=== PATIENT | female | born 1970 | race Caucasian/White ===

== ENCOUNTER → 2018-03-16 | Outpatient (CLI) | payer BC ==
[~2018-03-16] MED LIST: BIRTH CONTROL; COMPAZINE10 MG PO; CYCL10 PO; GAS-X; HYDACE5 PO; HYDACE5325 PO; IBUP800 PO; LANS15EC PO; NAPR500 PO; Norco 5-325 Ta1 EACH PO; POLY17UD PO; PROM25 PO; TRAM50 PO; Zithromax250 MG PO
[2018-03-16 13:02] LABS: BASOPHILS ABSOLUTE AUTO 0.02 K/mm3 (0.00-0.23); BASOPHILS PERCENT AUTO 0 % (0-2); EOSINOPHILS ABSOLUTE AUTO 0.06 K/mm3 (0.00-0.68); EOSINOPHILS PERCENT AUTO 1 % (0-6); Hematocrit 39.1 % (33.0-51.0); Hemoglobin 12.9 g/dL (11.5-16.0); IMMATURE GRAN ABSOLUTE AUTO 0.02 K/mm3 (0.00-0.10); IMMATURE GRAN PERCENT AUTO 0 % (0-1); LYMPHOCYTES ABSOLUTE AUTO 1.13 K/mm3 (0.84-5.20); LYMPHOCYTES PERCENT AUTO 19 % (21-46); MONOCYTES ABSOLUTE AUTO 0.45 K/mm3 (0.16-1.47); MONOCYTES PERCENT AUTO 8 % (4-13); Mean Corpuscular HGB 31.1 pg (26.0-34.0); Mean Corpuscular Volume 94 fL (80-100); NEUTROPHILS ABSOLUTE AUTO 4.25 K/mm3 (1.96-9.15); NEUTROPHILS PERCENT AUTO 72 % (41-73); Platelet Count 247 K/mm3 (150-400); RDW Coefficient Variation 12.9 % (11.7-14.2); RDW Standard Deviation 44.8 fL (35.1-46.3); Red Blood Cell Count 4.15 M/mm3 (3.80-5.20); White Blood Cell Count 5.93 K/mm3 (4.00-11.30)
[2018-03-16 13:19] LABS: Alanine Aminotransfer (ALT/SGP 20 U/L (12-78); Albumin, Blood 3.6 g/dL (3.4-5.0); Alk Phos 81 U/L (50-136); Anion Gap 6 mmol/L (6-16); Aspartate Aminotrans (AST/SGOT 9 U/L (12-37); Bilirubin, Total 0.3 mg/dL (0.1-1.0); Blood Urea Nitrogen 13 mg/dL (8-24); Bun/Creatinine Ratio 15.1 (12.0-20.0); CO2, Blood 28 mmol/L (21-32); Calcium, Blood 8.8 mg/dL (8.5-10.1); Chloride, Blood 107 mmol/L (98-108); Creatinine, Blood 0.86 mg/dL (0.40-1.00); Globulin, Blood 3.5 g/dL (2.2-4.0); Glomerular Filtration Rate >60 (60-); Glucose, Blood 85 mg/dL (70-99); Potassium, Blood 4.3 mmol/L (3.5-5.5); Sodium, Blood 141 mmol/L (136-145); Total Protein, Blood 7.1 g/dL (6.4-8.2)
== END ==
LOC: LAB 10:57 → LAB SHORT 10:57
PROVIDERS: Physician Assistant
DX: R10.9 Unspecified abdominal pain (principal)
CPT/HCPCS: 80053; 85025

== ENCOUNTER 2018-03-26 12:29 | Emergency (ER) | payer BC ==
[~2018-03-26] VITALS: Ht 162.6 cm; Wt 79.4 kg
[2018-03-26 13:33] LABS: BASOPHILS ABSOLUTE AUTO 0.02 K/mm3 (0.00-0.23); BASOPHILS PERCENT AUTO 0 % (0-2); EOSINOPHILS ABSOLUTE AUTO 0.06 K/mm3 (0.00-0.68); EOSINOPHILS PERCENT AUTO 1 % (0-6); IMMATURE GRAN ABSOLUTE AUTO 0.01 K/mm3 (0.00-0.10); IMMATURE GRAN PERCENT AUTO 0 % (0-1); LYMPHOCYTES ABSOLUTE AUTO 1.41 K/mm3 (0.84-5.20); LYMPHOCYTES PERCENT AUTO 28 % (21-46); MONOCYTES ABSOLUTE AUTO 0.56 K/mm3 (0.16-1.47); MONOCYTES PERCENT AUTO 11 % (4-13); Mean Corpuscular HGB Conc 33.3 g/dL (31.5-36.5); Mean Corpuscular Volume 93 fL (80-100); Mean Platelet Volume 9.8 fL (9.1-12.4); NEUTROPHILS ABSOLUTE AUTO 3.04 K/mm3 (1.96-9.15); NEUTROPHILS PERCENT AUTO 60 % (41-73); Platelet Count 227 K/mm3 (150-400); RDW Coefficient Variation 12.9 % (11.7-14.2); RDW Standard Deviation 43.8 fL (35.1-46.3)
[2018-03-26 13:46] LABS: Alanine Aminotransfer (ALT/SGP 25 U/L (12-78); Albumin, Blood 3.5 g/dL (3.4-5.0); Albumin/Globulin Ratio 0.9 (0.8-1.8); Alk Phos 80 U/L (50-136); Anion Gap 8 mmol/L (6-16); Aspartate Aminotrans (AST/SGOT 17 U/L (12-37); Bilirubin, Total 0.3 mg/dL (0.1-1.0); Blood Urea Nitrogen 17 mg/dL (8-24); Bun/Creatinine Ratio 20.3 (12.0-20.0); CO2, Blood 24 mmol/L (21-32); Calcium, Blood 8.7 mg/dL (8.5-10.1); Chloride, Blood 108 mmol/L (98-108); Creatinine, Blood 0.84 mg/dL (0.40-1.00); Globulin, Blood 3.7 g/dL (2.2-4.0); Glomerular Filtration Rate >60 (60-); Glucose, Blood 84 mg/dL (70-99); Sodium, Blood 140 mmol/L (136-145); Total Protein, Blood 7.2 g/dL (6.4-8.2)
[2018-03-26] MEDS ORDERED: Norco 5-325 Ta1 EACH PO (15:29)
[2018-03-26] MEDS ORDERED: IBUP800 PO (15:29)
== END 2018-03-26 16:02 | disposition home or self-care (01) ==
LOC: ER 12:29
PROVIDERS: Emergency Medicine
DX: R10.31 Right lower quadrant pain (principal); H00.19 Chalazion unspecified eye, unspecified eyelid; N88.8 Other specified noninflammatory disorders of cervix uteri; N83.02 Follicular cyst of left ovary; Z88.8 Allergy status to other drugs, medicaments and biological substances; Z88.1 Allergy status to other antibiotic agents
CPT/HCPCS: 76830; 76856; 80053; 81000; 81025; 83690; 85025; 96361; 96374; 96375; 99284; J1885; J2405; J3010; J7030

== ENCOUNTER 2019-04-11 09:28 | Inpatient (IN) | payer SELFPAY ==
[~2019-04-11] VITALS: Ht 162.6 cm; Wt 95.0 kg
[~2019-04-11 09:28] MED LIST changes: +MEDR10 PO
[2019-04-11] MEDS ORDERED: Pyridium100 MG (09:46)
[2019-04-11] MEDS ORDERED: NITR100CA PO (09:46)
[2019-04-11 10:01] LABS: Source, Urine Clean Catch
[2019-04-11 10:10] LABS: Blood, Urine 2+ (Neg); Glucose Qualitative, Urine 2+ (Neg); Ketones, Urine 1+ (Neg); Leukocyte Esterase, Urine 1+ (Neg); Nitrite, Urine Pos (Neg); Protein, Urine 2+ (Neg); Specific Gravity, Urine 1.015 (1.003-1.022); Urobilinogen, Urine 3+ (Normal)
[2019-04-11 10:12] LABS: BASOPHILS ABSOLUTE AUTO 0.02 K/mm3 (0.00-0.23); BASOPHILS PERCENT AUTO 0 % (0-2); EOSINOPHILS PERCENT AUTO 0 % (0-6); Hematocrit 38.6 % (33.0-51.0); Hemoglobin 12.8 g/dL (11.5-16.0); IMMATURE GRAN ABSOLUTE AUTO 0.07 K/mm3 (0.00-0.10); IMMATURE GRAN PERCENT AUTO 1 % (0-1); LYMPHOCYTES ABSOLUTE AUTO 0.82 K/mm3 (0.84-5.20); LYMPHOCYTES PERCENT AUTO 6 % (21-46); MONOCYTES ABSOLUTE AUTO 1.51 K/mm3 (0.16-1.47); MONOCYTES PERCENT AUTO 11 % (4-13); Mean Corpuscular HGB 31.3 pg (26.0-34.0); Mean Corpuscular HGB Conc 33.2 g/dL (31.5-36.5); Mean Corpuscular Volume 94 fL (80-100); Mean Platelet Volume 9.7 fL (9.1-12.4); NEUTROPHILS ABSOLUTE AUTO 11.96 K/mm3 (1.96-9.15); NEUTROPHILS PERCENT AUTO 83 % (41-73); Platelet Count 191 K/mm3 (150-400); RDW Coefficient Variation 13.2 % (11.7-14.2); RDW Standard Deviation 45.7 fL (35.1-46.3); Red Blood Cell Count 4.09 M/mm3 (3.80-5.20); White Blood Cell Count 14.38 K/mm3 (4.00-11.30)
[2019-04-11 10:21] LABS: Bilirubin, Urine 2+ (Neg)
[2019-04-11 10:22] LABS: Appearance, Urine Clear (Clear); Bacteria Rare /hpf; Color, Urine Amber (P-Yellow); Squamous Epithelial Cells Few /hpf (Few)
[2019-04-11 10:27] LABS: Alanine Aminotransfer (ALT/SGP 30 U/L (12-78); Albumin, Blood 3.6 g/dL (3.4-5.0); Albumin/Globulin Ratio 0.9 (0.8-1.8); Alk Phos 77 U/L (50-136); Anion Gap 8 mmol/L (6-16); Aspartate Aminotrans (AST/SGOT 14 U/L (12-37); Bilirubin, Total 0.4 mg/dL (0.1-1.0); Blood Urea Nitrogen 9 mg/dL (8-24); Bun/Creatinine Ratio 10.2 (12.0-20.0); CO2, Blood 22 mmol/L (21-32); Calcium, Blood 8.5 mg/dL (8.5-10.1); Chloride, Blood 110 mmol/L (98-108); Creatinine, Blood 0.88 mg/dL (0.40-1.00); Globulin, Blood 3.8 g/dL (2.2-4.0); Glomerular Filtration Rate >60 (60-); Glucose, Blood 101 mg/dL (70-99); Potassium, Blood 3.9 mmol/L (3.5-5.5); Sodium, Blood 140 mmol/L (136-145); Total Protein, Blood 7.4 g/dL (6.4-8.2)
[2019-04-11] MEDS ORDERED: Armour Thyroid15 MG PO (13:39)
[2019-04-11] MEDS ORDERED: FLUO10 PO (13:39)
[2019-04-11] MEDS ORDERED: PROGESTERONE100 MG PO (15:20)
[2019-04-11] MEDS ORDERED: Pyridium100 MG PO (15:22)
[2019-04-11] MEDS ORDERED: Nitrofurantoin100 MG PO (15:23)
--- NOTE | 2019-04-11 17:20 | NUR ---
SHIFT SUMMARY 49 YR OLD FEMALE ADMITTED FOR PYLEONEPHRITIS (RT SIDE). FULL CODE. SHE HAD BEEN TAKING ANTIBIOTICS FOR A UTI PREVIOUS TO ADMIT. SHE IS A&O X4, INDEPENDENT IN THE ROOM. SCD'S ORDERED FOR DVT PREVENTION. REGULAR DIET. ROOM AIR. NS IS RUNNING @ 100 ML/HR. NO OTHER HEALTH HISTORY FOR THIS PT.
[2019-04-12 05:00] LABS: BASOPHILS ABSOLUTE AUTO 0.01 K/mm3 (0.00-0.23); BASOPHILS PERCENT AUTO 0 % (0-2); EOSINOPHILS ABSOLUTE AUTO 0.01 K/mm3 (0.00-0.68); EOSINOPHILS PERCENT AUTO 0 % (0-6); Hematocrit 32.3 % (33.0-51.0); Hemoglobin 10.6 g/dL (11.5-16.0); IMMATURE GRAN ABSOLUTE AUTO 0.03 K/mm3 (0.00-0.10); IMMATURE GRAN PERCENT AUTO 0 % (0-1); LYMPHOCYTES ABSOLUTE AUTO 0.98 K/mm3 (0.84-5.20); LYMPHOCYTES PERCENT AUTO 10 % (21-46); MONOCYTES ABSOLUTE AUTO 1.03 K/mm3 (0.16-1.47); MONOCYTES PERCENT AUTO 11 % (4-13); Mean Corpuscular HGB 31.2 pg (26.0-34.0); Mean Corpuscular HGB Conc 32.8 g/dL (31.5-36.5); Mean Corpuscular Volume 95 fL (80-100); Mean Platelet Volume 9.5 fL (9.1-12.4); NEUTROPHILS ABSOLUTE AUTO 7.33 K/mm3 (1.96-9.15); NEUTROPHILS PERCENT AUTO 78 % (41-73); Platelet Count 154 K/mm3 (150-400); RDW Coefficient Variation 13.2 % (11.7-14.2); RDW Standard Deviation 45.6 fL (35.1-46.3); White Blood Cell Count 9.39 K/mm3 (4.00-11.30)
[2019-04-12 05:32] LABS: Alanine Aminotransfer (ALT/SGP 76 U/L (12-78); Albumin, Blood 2.6 g/dL (3.4-5.0); Albumin/Globulin Ratio 0.8 (0.8-1.8); Alk Phos 77 U/L (50-136); Anion Gap 5 mmol/L (6-16); Aspartate Aminotrans (AST/SGOT 64 U/L (12-37); Bilirubin, Total 0.6 mg/dL (0.1-1.0); Blood Urea Nitrogen 11 mg/dL (8-24); Bun/Creatinine Ratio 12.2 (12.0-20.0); CO2, Blood 23 mmol/L (21-32); Calcium, Blood 7.7 mg/dL (8.5-10.1); Chloride, Blood 112 mmol/L (98-108); Globulin, Blood 3.3 g/dL (2.2-4.0); Glomerular Filtration Rate >60 (60-); Glucose, Blood 109 mg/dL (70-99); Magnesium, Blood 2.1 mg/dL (1.6-2.4); Potassium, Blood 4.1 mmol/L (3.5-5.5); Sodium, Blood 140 mmol/L (136-145); Total Protein, Blood 5.9 g/dL (6.4-8.2)
--- NOTE | 2019-04-12 07:16 | NUR ---
call light in reach, room air, saline locked, pain controlled with medication, sbar report given to day staff
--- NOTE | 2019-04-12 18:32 | NUR ---
SHIFT SUMMARY 49 YR OLD FEMALE ADMITTED FOR PYELONEPHRITIS. FULL CODE. TODAY FOUND TO HAVE POSITIVE BLOOD CULTURE FOR GRAM NEGATIVE BACILLUS. ROOM AIR, INDEPENDENT. A&O X4. CHANGES MADE TO HER ANTIBIOTICS TODAY. IV FLUIDS DC'D. PT STATES SHE CONTINUES TO HAVE PAIN.
--- NOTE | 2019-04-13 04:14 | NUR ---
NOC SHIFT SUMMARY PT IS PLEASANT AND COOPERATIVE WITH CARE. STATES MUCH IMPROVEMENT WITH FLANK PAIN. THE SMALL AMOUNT OF PAIN SHE HAD WAS TREATED EFFECTIVELY PER EMAR. SHE IS AAOX4 RESP EVEN AND UNLABORD. VSS. SOME NAUSEA, TREATED PER EMAR. PT APPEARS IN NO ACUTE DISTRESS. HAS SLEPT MUCH OF SHIFT. WILL CONTINUE TO MONITOR.
[2019-04-13 04:53] LABS: BASOPHILS ABSOLUTE AUTO 0.02 K/mm3 (0.00-0.23); BASOPHILS PERCENT AUTO 0 % (0-2); EOSINOPHILS ABSOLUTE AUTO 0.04 K/mm3 (0.00-0.68); EOSINOPHILS PERCENT AUTO 1 % (0-6); Hematocrit 30.9 % (33.0-51.0); IMMATURE GRAN ABSOLUTE AUTO 0.02 K/mm3 (0.00-0.10); IMMATURE GRAN PERCENT AUTO 0 % (0-1); LYMPHOCYTES ABSOLUTE AUTO 1.06 K/mm3 (0.84-5.20); LYMPHOCYTES PERCENT AUTO 16 % (21-46); MONOCYTES ABSOLUTE AUTO 0.69 K/mm3 (0.16-1.47); MONOCYTES PERCENT AUTO 11 % (4-13); Mean Corpuscular HGB 31.2 pg (26.0-34.0); Mean Corpuscular HGB Conc 32.4 g/dL (31.5-36.5); Mean Corpuscular Volume 96 fL (80-100); Mean Platelet Volume 9.8 fL (9.1-12.4); NEUTROPHILS ABSOLUTE AUTO 4.71 K/mm3 (1.96-9.15); NEUTROPHILS PERCENT AUTO 72 % (41-73); Platelet Count 147 K/mm3 (150-400); RDW Coefficient Variation 13.1 % (11.7-14.2); RDW Standard Deviation 46.6 fL (35.1-46.3); Red Blood Cell Count 3.21 M/mm3 (3.80-5.20); White Blood Cell Count 6.54 K/mm3 (4.00-11.30)
[2019-04-13 05:13] LABS: Alanine Aminotransfer (ALT/SGP 242 U/L (12-78); Albumin, Blood 2.5 g/dL (3.4-5.0); Albumin/Globulin Ratio 0.8 (0.8-1.8); Alk Phos 95 U/L (50-136); Anion Gap 5 mmol/L (6-16); Aspartate Aminotrans (AST/SGOT 181 U/L (12-37); Bilirubin, Total 0.5 mg/dL (0.1-1.0); Blood Urea Nitrogen 14 mg/dL (8-24); Bun/Creatinine Ratio 16.4 (12.0-20.0); CO2, Blood 24 mmol/L (21-32); Calcium, Blood 7.9 mg/dL (8.5-10.1); Chloride, Blood 113 mmol/L (98-108); Creatinine, Blood 0.86 mg/dL (0.40-1.00); Globulin, Blood 3.3 g/dL (2.2-4.0); Glomerular Filtration Rate >60 (60-); Glucose, Blood 95 mg/dL (70-99); Magnesium, Blood 2.1 mg/dL (1.6-2.4); Potassium, Blood 4.5 mmol/L (3.5-5.5); Sodium, Blood 142 mmol/L (136-145); Total Protein, Blood 5.8 g/dL (6.4-8.2)
[2019-04-13 10:15] LABS: Percent Saturation 32.2 % (15.0-50.0)
--- NOTE | 2019-04-13 17:57 | NUR ---
SHIFT SUMMARY 49 YR OLD FEMALE ADMITTED FOR PYELONEPHRITIS TODAY. FULL CODE. ROOM AIR, INDEPENDENT. A&O X4. ULTRASOUND PERFORMED TODAY OF GALLBLADDER AND LIVER. PT'S BLOOD CULTURE WAS POSITIVE FOR GRAM NEG BACILLUS YESTERDAY. REGULAR DIET. PT NOW STATING ABDOMINAL PAIN WELL LOWER BACK PAIN. HX: 30 DAY LONG MENSTRUATION, UTI
[2019-04-14 05:02] LABS: BASOPHILS ABSOLUTE AUTO 0.02 K/mm3 (0.00-0.23); BASOPHILS PERCENT AUTO 0 % (0-2); EOSINOPHILS ABSOLUTE AUTO 0.04 K/mm3 (0.00-0.68); EOSINOPHILS PERCENT AUTO 1 % (0-6); Hematocrit 31.5 % (33.0-51.0); Hemoglobin 10.1 g/dL (11.5-16.0); IMMATURE GRAN ABSOLUTE AUTO 0.06 K/mm3 (0.00-0.10); IMMATURE GRAN PERCENT AUTO 1 % (0-1); LYMPHOCYTES ABSOLUTE AUTO 0.88 K/mm3 (0.84-5.20); LYMPHOCYTES PERCENT AUTO 13 % (21-46); MONOCYTES ABSOLUTE AUTO 0.72 K/mm3 (0.16-1.47); MONOCYTES PERCENT AUTO 11 % (4-13); Mean Corpuscular HGB 31.1 pg (26.0-34.0); Mean Corpuscular HGB Conc 32.1 g/dL (31.5-36.5); Mean Corpuscular Volume 97 fL (80-100); NEUTROPHILS ABSOLUTE AUTO 4.96 K/mm3 (1.96-9.15); NEUTROPHILS PERCENT AUTO 74 % (41-73); Platelet Count 174 K/mm3 (150-400); RDW Coefficient Variation 13.1 % (11.7-14.2); RDW Standard Deviation 46.9 fL (35.1-46.3); Red Blood Cell Count 3.25 M/mm3 (3.80-5.20); White Blood Cell Count 6.68 K/mm3 (4.00-11.30)
[2019-04-14 05:18] LABS: Alanine Aminotransfer (ALT/SGP 231 U/L (12-78); Albumin, Blood 2.7 g/dL (3.4-5.0); Albumin/Globulin Ratio 0.8 (0.8-1.8); Alk Phos 116 U/L (50-136); Anion Gap 5 mmol/L (6-16); Aspartate Aminotrans (AST/SGOT 85 U/L (12-37); Bilirubin, Total 0.5 mg/dL (0.1-1.0); Blood Urea Nitrogen 12 mg/dL (8-24); Bun/Creatinine Ratio 12.6 (12.0-20.0); CO2, Blood 26 mmol/L (21-32); Calcium, Blood 8.2 mg/dL (8.5-10.1); Chloride, Blood 110 mmol/L (98-108); Creatinine, Blood 0.95 mg/dL (0.40-1.00); Globulin, Blood 3.4 g/dL (2.2-4.0); Glomerular Filtration Rate >60 (60-); Glucose, Blood 104 mg/dL (70-99); Potassium, Blood 4.3 mmol/L (3.5-5.5); Sodium, Blood 141 mmol/L (136-145); Total Protein, Blood 6.1 g/dL (6.4-8.2)
--- NOTE | 2019-04-14 07:21 | NUR ---
NOC SHIFT SUMMARY PT IS PLEASANT AND COOPERATIVE WITH CARE THIS NIGHT. SLEPT OFF AND ON DURING THE NIGHT. SHE DID HAVE SOME STOMACH PAIN WHICH WAS TREATED WITH NORCO, PEPTO BISMOL, AND NAUSEA TREATED WITH ZOFRAN. VSS. NO ACUTE CHANGES THIS SHIFT. REPORT TO ANNIE LINDO.
--- NOTE | 2019-04-14 17:05 | NUR ---
PT IS A/OX3, PLEASANT AND COOPERATIVE THE PT IS UP IND IN HER ROOM, TODAY THE PT REPORTED INCREASED PAIN IN HER MID UPPER ABDOMEN AND WAS MEDICATED FOR PAIN T/O THE DAY, THE PT WAS GIVEN A GI COCKTAIL X2 TODAY AND REPORTED SOME IMPROVEMENT IN PAIN BUT NOT MUCH, THE PT APPEARS TO BE BREATHING EASILY ON RA, IT WAS NOTICED THAT THE PTS HR RATE HAS BEEN IN THE 40-50S, DR. BALL WAS CALLED NO NEW ORDERS WERE GIVEN EXCEPT TO CONTINUE MONITORING, FAMILY AT THE BEDSIDE, CALL LIGHT IN REACH, WILL CONTINUE TO MONITOR AND ASSESS FOR CHANGES
--- NOTE | 2019-04-15 04:12 | NUR ---
SHIFT SUMMARY PATIENT IS ALERT AND ORIENTED. PATIENT ON ROOM AIR. COMPLAINED OF NAUSEA AT BEGINING OF SHIFT, STATES THE ZOFRAN DID NOT HELP. PT WAS CONCERNED THAT THE HOSPITALIST WAS TAKING HER CONCERNS SERIOUSLY. SHE FEELS SHE IS GETTING WORSE AND NOTHING IS BEING DONE. STATED SHE WANTED TO SEE A DIFFERENT DOCTOR. THIS RN TALKED WITH CHARGE NURSE ALEXANDRA HUSSEIN. PT STATED THE PAIN MEDICATIONS WERE NOT HELPING MUCH WITH THE PAIN JUST MAKING HER VERY TIRED. HOSPITALIST CALLED AND UPDATED ON THE PATIENTS STATUS. NEW ORDERS FOR HIDA SCAN TODAY, A SECOND NAUSEA MED AND A CHANGE IN PAIN MEDICATIONS. MEDICATED PATIENT WITH PHENERGAN ONCE. PT STATES THIS HELPED DECREASE THE NAUSEA AND HASN'T HAD PAIN. HOSPITALIST ALSO WANTED ME TO REASSURE THE PT THAT HER LABS ARE GOING IN THE RIGHT DIRECTION. PATIENT SLEPT WELL AFTER BEING MEDICATION. NO ACUTE CHANGES SINCE THEN. VITALS STABLE. OXYGEN WAS LOW AT BEGINING OF SHIFT WITH SOB- THIS WAS ALSO DISCUSSED WITH THE HOSPITALIST. RECHECKED OXYGEN AND IT CAME UP INTO THE MID 90'S ON ROOM AIR.
--- NOTE | 2019-04-15 12:16 | NUR ---
PT CONCERN AT AROUND 1900 LAST NIGHT WHILE DOING THE BEDSIDE REPORT THE PT VOICED CONCERN THAT SHE FELT HER SYMPTOMS WERE WORSENING AND THAT SHE FELT THAT SHE WAS NOT GETTING THE THE APPROPRIATE PLAN OF CARE,BOTH THE NIGHT RN AND I TRIED TO REASURE THE PT THAT EVEN THOUGH SOME OF HER LAB VALUES, PARTICULARY HER LIVER ENZYMES, REMAINED ELEVATED THAT THEY WERE TRENDING IN THE RIGT DIRECTION, SHE ASKED AT THAT TIME IF SHE COULD HAVE ANOUTHER DOCTOR FOR A SECOND OPINION, THIS AM I CALLED THE HOSPITALIST OFFICE AND HAD TOLD THEM OF THE PATIENTS REQUEST,SINCE DR. BALL WOULD BE OFF TOMORROW 04/16/19 THEY SUGGESTED THAT THE PT WAIT UNTIL [place] BEFORE CHANGING DOCTORS, THE PT AGREED AT THAT TIME TO WAIT
[2019-04-15] MEDS ORDERED: ONDA4 PO (16:09)
[2019-04-15] MEDS ORDERED: Augmentin 875-1 EACH PO (16:10)
[2019-04-15] MEDS ORDERED: PANT20 PO (16:10)
[2019-04-15] MEDS ORDERED: Norco 5-325 Ta1 EACH PO (16:11)
--- NOTE | 2019-04-15 17:25 | NUR ---
PT DISCHARGED, THE PT VERBALIZED UNDERSTANDING OF THE DC INSTRUCTIONS, THE PT PERSCRIPTIONS WERE FAXED TO [facility] REQUESTED, HOWEVER, THE PT REPORTED THAT THEY DID NOT RECIEVE THE FAX, SO THE PRESCRIPTIONS WERE CALLED TO [facility] AFTER THE PT WAS DC'D, THE PT WAS TRANSFERED VIA WHEELCHAIR ACCOMPANIED BY HER FAMILY AND THE [facility] PRICING CONSULTANT, PT IS A/OX3, APPEARED TO BE BREATHING EASILY ON RA
== END 2019-04-15 16:33 | disposition home or self-care (01) | DRG 690 ==
LOC: ER 09:28 → MEDS 09:29
PROVIDERS: Emergency Medicine; ADMIT Internal Medicine
DX: N12 Tubulo-interstitial nephritis, not specified as acute or chronic (principal); E03.9 Hypothyroidism, unspecified; N92.6 Irregular menstruation, unspecified; K76.0 Fatty (change of) liver, not elsewhere classified
CPT/HCPCS: 36415; 71046; 74176; 76705; 80053; 81001; 82728; 83540; 83550; 83605; 83690; 83735; 84443; 85025; 87040; 87077; 87086; 87186; 96365; 96375; 99284-25; A9270; A9270-GY; J0696; J1170; J1650; J1885; J2270; J2405; J2543; J2550; J3010; J7030

== ENCOUNTER 2019-09-23 08:48 | Day surgery (SDC) | payer BC, SELFPAY ==
[~2019-09-23] VITALS: Ht 162.6 cm; Wt 95.2 kg
[~2019-09-23 08:48] MED LIST changes: +Armour Thyroid15 MG PO; +Augmentin 875-1 EACH PO; +CRUTCH2 XX; +FLUO10 PO; +INDO50S PO; +Indomethacin50 MG PO; +NITR100CA PO; +Nitrofurantoin100 MG PO; +ONDA4 PO; +PANT20 PO; +PROGESTERONE100 MG PO; +Percocet 5-3251 EACH PO; +Pyridium100 MG; +Pyridium100 MG PO
--- NOTE | 2019-09-23 10:35 | NUR ---
09/23/19 1035 Lin Whitehead PT RESTING COMFORTABLY IN BED, CALL LIGHT WITHIN REACH. FAMILY AT BEDSIDE. PT UPDATED ON DELAY. PT VERBALIZES UNDERSTANDING & DENIES NEEDS AT THIS TIME.
== END 2019-09-23 13:55 | disposition home or self-care (01) ==
LOC: ORSCSDS 08:48
PROVIDERS: Orthopaedic Surgery
PROC: 0SBD4ZZ Excision of Left Knee Joint, Percutaneous Endoscopic Approach (ICD-10-PCS; principal; 2019-09-23 10:15)
DX: S83.242A Other tear of medial meniscus, current injury, left knee, initial encounter (principal); M94.262 Chondromalacia, left knee; E03.9 Hypothyroidism, unspecified; K21.9 Gastro-esophageal reflux disease without esophagitis; E66.01 Morbid (severe) obesity due to excess calories; Z68.36 Body mass index [BMI] 36.0-36.9, adult; G62.9 Polyneuropathy, unspecified; Z79.899 Other long term (current) drug therapy
CPT/HCPCS: A9270-GY; C1713; J0171; J0690; J1100; J1885; J2250; J2405; J2704; J2795; J3010; J7120

== ENCOUNTER 2020-04-24 10:02 | Emergency (ER) | payer BC, OTHER ==
[~2020-04-24] VITALS: Ht 162.6 cm; Wt 95.2 kg
[2020-04-24] MEDS ORDERED: CELEXA10 MG PO (10:14)
[2020-04-24] MEDS ORDERED: THYROID30 MG PO (10:14)
[2020-04-24 11:04] LABS: BASOPHILS ABSOLUTE AUTO 0.02 K/mm3 (0.00-0.23); BASOPHILS PERCENT AUTO 0 % (0-2); EOSINOPHILS ABSOLUTE AUTO 0.05 K/mm3 (0.00-0.68); EOSINOPHILS PERCENT AUTO 1 % (0-6); Hematocrit 40.8 % (33.0-51.0); Hemoglobin 13.3 g/dL (11.5-16.0); IMMATURE GRAN ABSOLUTE AUTO 0.02 K/mm3 (0.00-0.10); IMMATURE GRAN PERCENT AUTO 0 % (0-1); LYMPHOCYTES ABSOLUTE AUTO 1.41 K/mm3 (0.84-5.20); LYMPHOCYTES PERCENT AUTO 21 % (21-46); MONOCYTES ABSOLUTE AUTO 0.55 K/mm3 (0.16-1.47); MONOCYTES PERCENT AUTO 8 % (4-13); Mean Corpuscular HGB 31.1 pg (26.0-34.0); Mean Corpuscular HGB Conc 32.6 g/dL (31.5-36.5); Mean Corpuscular Volume 96 fL (80-100); Mean Platelet Volume 10.3 fL (9.1-12.4); NEUTROPHILS ABSOLUTE AUTO 4.55 K/mm3 (1.96-9.15); NEUTROPHILS PERCENT AUTO 69 % (41-73); Platelet Count 236 K/mm3 (150-400); RDW Coefficient Variation 13.5 % (11.7-14.2); RDW Standard Deviation 47.5 fL (35.1-46.3); Red Blood Cell Count 4.27 M/mm3 (3.80-5.20)
[2020-04-24 12:06] LABS: Alanine Aminotransfer (ALT/SGP 25 U/L (12-78); Albumin, Blood 3.8 g/dL (3.4-5.0); Albumin/Globulin Ratio 1.1 (0.8-1.8); Alk Phos 92 U/L (50-136); Anion Gap 6 mmol/L (6-16); Aspartate Aminotrans (AST/SGOT 15 U/L (12-37); Bilirubin, Total 0.3 mg/dL (0.1-1.0); Blood Urea Nitrogen 18 mg/dL (8-24); Bun/Creatinine Ratio 17.8 (12.0-20.0); CO2, Blood 25 mmol/L (21-32); Calcium, Blood 8.8 mg/dL (8.5-10.1); Chloride, Blood 108 mmol/L (98-108); Creatinine, Blood 1.01 mg/dL (0.40-1.00); Globulin, Blood 3.6 g/dL (2.2-4.0); Glomerular Filtration Rate >60 (60-); Glucose, Blood 91 mg/dL (70-99); Magnesium, Blood 2.2 mg/dL (1.6-2.4); Potassium, Blood 3.7 mmol/L (3.5-5.5); Sodium, Blood 139 mmol/L (136-145); Total Protein, Blood 7.4 g/dL (6.4-8.2); Troponin I <0.015 ng/mL (0.000-0.040)
== END 2020-04-24 13:19 | disposition home or self-care (01) ==
LOC: ER 10:02
PROVIDERS: Emergency Medicine
DX: I10 Essential (primary) hypertension (principal); Z88.1 Allergy status to other antibiotic agents; Z88.8 Allergy status to other drugs, medicaments and biological substances; Z79.899 Other long term (current) drug therapy
CPT/HCPCS: 36415; 80053; 83735; 84443; 84484; 85025; 93005; 93010; 99283-25

== ENCOUNTER → 2020-06-17 | Outpatient (CLI) | payer BC, OTHER ==
[~2020-06-17] MED LIST changes: +CELEXA10 MG PO; +THYROID30 MG PO
== END | disposition home or self-care (01) ==
LOC: PLD 08:34 → LAB SHORT 08:34
DX: R23.4 Changes in skin texture (principal); L60.8 Other nail disorders
CPT/HCPCS: 88305; 88312

== ENCOUNTER 2020-08-19 13:55 | Day surgery (SDC) | payer BC ==
[~2020-08-19] VITALS: Ht 162.6 cm; Wt 93.6 kg
[~2020-08-19 13:55] MED LIST changes: +INDO50 PO
--- NOTE | 2020-08-19 15:02 | NUR ---
08/19/20 Raghu2 Quin Blancas CALL LIGHT WITHIN REACH. FAMILY AT BEDSIDE.
== END 2020-08-19 17:25 | disposition home or self-care (01) ==
LOC: ORSCSDS 13:55
PROVIDERS: Podiatrist
PROC: 0SNP0ZZ Release Right Toe Phalangeal Joint, Open Approach (ICD-10-PCS; principal; 2020-08-19 15:15)
PROC: 0L8V0ZZ Division of Right Foot Tendon, Open Approach (ICD-10-PCS; principal; 2020-08-19 15:15)
DX: M20.41 Other hammer toe(s) (acquired), right foot (principal); E03.9 Hypothyroidism, unspecified; E66.9 Obesity, unspecified; Z68.35 Body mass index [BMI] 35.0-35.9, adult; Z79.899 Other long term (current) drug therapy
CPT/HCPCS: J0690; J1100; J1885; J2001; J2250; J2405; J2704; J3010; J7120

== ENCOUNTER 2020-11-08 12:44 | Emergency (ER) | payer BC, SELFPAY ==
[~2020-11-08] VITALS: Ht 162.6 cm; Wt 94.3 kg
[2020-11-08 13:44] LABS: BASOPHILS ABSOLUTE AUTO 0.01 K/mm3 (0.00-0.23); BASOPHILS PERCENT AUTO 0 % (0-2); EOSINOPHILS ABSOLUTE AUTO 0.08 K/mm3 (0.00-0.68); EOSINOPHILS PERCENT AUTO 1 % (0-6); Hematocrit 40.5 % (33.0-51.0); Hemoglobin 13.2 g/dL (11.5-16.0); IMMATURE GRAN ABSOLUTE AUTO 0.04 K/mm3 (0.00-0.10); IMMATURE GRAN PERCENT AUTO 1 % (0-1); LYMPHOCYTES ABSOLUTE AUTO 1.75 K/mm3 (0.84-5.20); LYMPHOCYTES PERCENT AUTO 22 % (21-46); MONOCYTES ABSOLUTE AUTO 0.62 K/mm3 (0.16-1.47); MONOCYTES PERCENT AUTO 8 % (4-13); Mean Corpuscular HGB 31.2 pg (26.0-34.0); Mean Corpuscular HGB Conc 32.6 g/dL (31.5-36.5); Mean Corpuscular Volume 96 fL (80-100); Mean Platelet Volume 9.8 fL (9.1-12.4); NEUTROPHILS ABSOLUTE AUTO 5.37 K/mm3 (1.96-9.15); NEUTROPHILS PERCENT AUTO 68 % (41-73); Platelet Count 244 K/mm3 (150-400); RDW Coefficient Variation 13.2 % (11.7-14.2); RDW Standard Deviation 46.6 fL (35.1-46.3); Red Blood Cell Count 4.23 M/mm3 (3.80-5.20); White Blood Cell Count 7.87 K/mm3 (4.00-11.30)
[2020-11-08 14:06] LABS: Alanine Aminotransfer (ALT/SGP 33 U/L (12-78); Albumin, Blood 3.6 g/dL (3.4-5.0); Albumin/Globulin Ratio 1.1 (0.8-1.8); Alk Phos 92 U/L (50-136); Anion Gap 7 mmol/L (6-16); Aspartate Aminotrans (AST/SGOT 12 U/L (12-37); Bilirubin, Total 0.3 mg/dL (0.1-1.0); Blood Urea Nitrogen 20 mg/dL (8-24); Bun/Creatinine Ratio 17.1 (12.0-20.0); CO2, Blood 27 mmol/L (21-32); Calcium, Blood 9.2 mg/dL (8.5-10.1); Chloride, Blood 109 mmol/L (98-108); Creatinine, Blood 1.17 mg/dL (0.40-1.00); Globulin, Blood 3.4 g/dL (2.2-4.0); Glomerular Filtration Rate 52 (60-); Glucose, Blood 120 mg/dL (70-99); Potassium, Blood 3.8 mmol/L (3.5-5.5); Sodium, Blood 143 mmol/L (136-145); Troponin I <0.015 ng/mL (0.000-0.040)
[2020-11-08] MEDS ORDERED: Norco 5-325 Ta1 EACH PO (16:41)
== END 2020-11-08 16:55 | disposition home or self-care (01) ==
LOC: ER 12:44
PROVIDERS: Physician Assistant
DX: R07.9 Chest pain, unspecified (principal); E03.9 Hypothyroidism, unspecified; Z88.1 Allergy status to other antibiotic agents; Z88.8 Allergy status to other drugs, medicaments and biological substances; Z79.899 Other long term (current) drug therapy
CPT/HCPCS: 36415; 71045; 80053; 84484; 85025; 93005; 93010; 99285-25

== ENCOUNTER 2020-12-14 04:47 | Emergency (ER) | payer OTHER, BC ==
[~2020-12-14] VITALS: Ht 162.6 cm; Wt 94.3 kg
[2020-12-15 07:11] LABS: HCV ANTIBODY 0.1 (0.0-0.9); HEP B SURFACE AB Non Reactive (.); HIV SCREEN 4TH GENERATION WRFX Non Reactive (Non Reactive)
== END 2020-12-14 05:44 | disposition home or self-care (01) ==
LOC: ER 04:47
DX: S61.432A Puncture wound without foreign body of left hand, initial encounter (principal); Z88.1 Allergy status to other antibiotic agents; Z88.8 Allergy status to other drugs, medicaments and biological substances; Z79.899 Other long term (current) drug therapy; W46.1XXA Contact with contaminated hypodermic needle, initial encounter
CPT/HCPCS: 84460; 86703; 86803; 87340; 87389; 99282

== ENCOUNTER → 2021-06-18 | Outpatient (CLI) | payer BC ==
[2021-06-20 07:07] LABS: HIV SCREEN 4TH GENERATION WRFX Non Reactive (Non Reactive)
== END | disposition home or self-care (01) ==
LOC: LAB 14:35 → LAB SHORT 14:35
PROVIDERS: Family Medicine
DX: R30.9 Painful micturition, unspecified (principal); Z20.9 Contact with and (suspected) exposure to unspecified communicable disease
CPT/HCPCS: 87086; 87389

== ENCOUNTER → 2022-02-14 | Outpatient (CLI) | payer BC | LOC: LAB 07:33 → LAB SHORT 07:33 | DX: M15.9 Polyosteoarthritis, unspecified (principal) | CPT/HCPCS: 85651; 86140 ==

== ENCOUNTER → 2022-08-22 | Outpatient (CLI) | payer BC | LOC: LAB SHORT 09:30 → LAB 09:30 | DX: N39.46 Mixed incontinence (principal); R30.0 Dysuria | CPT/HCPCS: 87086 ==

== ENCOUNTER 2022-11-21 08:34 | Day surgery (SDC) | payer BC, OTHER ==
[~2022-11-21] VITALS: Ht 160 cm; Wt 93.8 kg
[~2022-11-21 08:34] MED LIST changes: +ACET500 PO; +DICL75ER PO
[2022-11-21] MEDS ORDERED: THYROID30 MG PO (09:28)
[2022-11-21] MEDS ORDERED: ESOM20 PO (09:29)
[2022-11-21] MEDS ORDERED: FISH OIL 1,2001 EAC7 PO (09:29)
[2022-11-21] MEDS ORDERED: Vitamin B-12100 MCG PO (09:30)
[2022-11-21] MEDS ORDERED: ONE DAILY MUL400 MCG PO (09:30)
[2022-11-21] MEDS ORDERED: PROBIOTIC1 EA13 PO (09:31)
[2022-11-21] MEDS ORDERED: Acerola C500 MG PO (09:31)
[2022-11-21] MEDS ORDERED: VITAMIN D325 MC3 PO (09:31)
[2022-11-21] MEDS ORDERED: VITAMIN D310 MC4 PO (09:36)
[2022-11-21] MEDS ORDERED: C COMPLEX1000 M1 PO (09:37)
[2022-11-21] MEDS ORDERED: LORA10ER PO (09:37)
--- NOTE | 2022-11-21 10:11 | NUR ---
Ambulatory in Day Surgery History, Chart, Medications and Allergies reviewed before start of procedure. Pre-Op teaching done. Pt verbalizes understanding.
--- NOTE | 2022-11-21 16:45 | NUR ---
SHIFT SUMMARY S/P L TKA DRESSING CDI, PAIN CONTROLLED PER EMAR. PT WALKED WELL WITH THERAPY. AWAITING FIRST VOID FROM SPINAL. TOLERATING PO WELL, DRINKING WATER. PLAN IS FOR PATIENT TO WORK WITH THERAPY TOMORROW AND DISCHARGE HOME. PRESCRIPTIONS PICKED UP BY DAUGHTER AT THIS TIME.
--- NOTE | 2022-11-22 04:18 | NUR ---
SHIFT SUMMARY NO ACUTE CHANGES THIS SHIFT. PT RESTED WELL. AQUACEL DRESSING TO LEFT KNEE REMAINS CDI WITH POLAR PACK IN PLACE. 1 ROXICODONE/TYLENOL/TORADOL FOR PAIN MANAGEMENT. UP WITH 1 ASSIST USING FWW + GB. VOIDING AND DARRON PO. USES CALL LIGHT APPROPRIATELY.
[2022-11-22 05:34] LABS: BASOPHILS ABSOLUTE AUTO 0.01 K/mm3 (0.00-0.23); BASOPHILS PERCENT AUTO 0 % (0-2); EOSINOPHILS PERCENT AUTO 0 % (0-6); Hematocrit 36.3 % (33.0-51.0); IMMATURE GRAN ABSOLUTE AUTO 0.03 K/mm3 (0.00-0.10); IMMATURE GRAN PERCENT AUTO 0 % (0-1); LYMPHOCYTES ABSOLUTE AUTO 0.59 K/mm3 (0.84-5.20); LYMPHOCYTES PERCENT AUTO 5 % (21-46); MONOCYTES ABSOLUTE AUTO 0.69 K/mm3 (0.16-1.47); MONOCYTES PERCENT AUTO 6 % (4-13); Mean Corpuscular HGB 31.7 pg (26.0-34.0); Mean Corpuscular HGB Conc 33.1 g/dL (31.5-36.5); Mean Corpuscular Volume 96 fL (80-100); Mean Platelet Volume 10.6 fL (9.1-12.4); NEUTROPHILS ABSOLUTE AUTO 10.97 K/mm3 (1.96-9.15); NEUTROPHILS PERCENT AUTO 89 % (41-73); Platelet Count 236 K/mm3 (150-400); RDW Coefficient Variation 12.6 % (11.7-14.2); RDW Standard Deviation 44.5 fL (35.1-46.3); Red Blood Cell Count 3.78 M/mm3 (3.80-5.20); White Blood Cell Count 12.29 K/mm3 (4.00-11.30)
[2022-11-22 06:02] LABS: Bun/Creatinine Ratio 20.8 (12.0-20.0); Calcium, Blood 8.6 mg/dL (8.5-10.1); Creatinine, Blood 0.77 mg/dL (0.40-1.00); Magnesium, Blood 2.3 mg/dL (1.6-2.4); Potassium, Blood 4.3 mmol/L (3.5-5.5)
--- NOTE | 2022-11-22 07:54 | NUR ---
A&OX4, DENIES ANY NEED FOR PAIN MEDS AT THIS TIME, REPORTS AMBULATING TO THE BATHROOM WITH WALKER AND STANDBY ASSIST, REPORTS PASSING FLATUS AND TOLERATING DIET WELL, CONT. TO MONITOR FOR ANY CHANGES.
[2022-11-22] MEDS ORDERED: ASPI81CH PO (11:57)
[2022-11-22] MEDS ORDERED: Percocet 5-3251 EACH PO (11:57)
--- NOTE | 2022-11-22 14:10 | NUR ---
DC'D HOME EARLIER THIS AFTERNOON, DC INSTRUCTIONS GIVEN, VERBALIZED UNDERSTANDING, IV DC'D, CATH INTACT.
== END 2022-11-22 12:11 | disposition home or self-care (01) ==
LOC: ORSCMMR 08:34 → ORD 10:00 → SURS 14:01 → ORD 15:00 → ORSCMMR 11-22 12:11
PROVIDERS: Orthopaedic Surgery
PROC: 0SRB0JA Replacement of Left Hip Joint with Synthetic Substitute, Uncemented, Open Approach (ICD-10-PCS; principal; 2022-11-21 10:00)
DX: M17.0 Bilateral primary osteoarthritis of knee (principal); G47.33 Obstructive sleep apnea (adult) (pediatric); E03.9 Hypothyroidism, unspecified; E66.9 Obesity, unspecified; Z68.35 Body mass index [BMI] 35.0-35.9, adult; K21.9 Gastro-esophageal reflux disease without esophagitis; Z79.899 Other long term (current) drug therapy
CPT/HCPCS: 36415; 73560-LT; 80048; 83735; 85025; 97110; 97116; 97162; A9270; C1776; J0171; J0690; J0735; J1100; J1885; J2250; J2370; J2405; J2704; J2795; J3010; J7120

== ENCOUNTER 2023-09-25 06:30 | Day surgery (SDC) | payer BC ==
[~2023-09-25] VITALS: Ht 162.6 cm; Wt 99.2 kg
[2023-09-25] VITALS (17 sets, daily range): BP systolic 92–136; BP diastolic 62–88
[~2023-09-25 06:30] MED LIST changes: +ABILIFY MYCITE5 M2 PO; +ASPI81CH PO; +Acerola C500 MG PO; +Amitriptyline H50 MG PO; +C COMPLEX1000 M1 PO; +CELE200 PO; +ESOM20 PO; +FISH OIL 1,2001 EAC7 PO; +GABA300 PO; +LORA10ER PO; +ONE DAILY MUL400 MCG PO; +PROBIOTIC1 EA13 PO; +THYR60 PO; +VITAMIN D310 MC4 PO; +VITAMIN D325 MC3 PO; +Vitamin B-12100 MCG PO
--- NOTE | 2023-09-25 07:41 | NUR ---
Ambulatory in Day Surgery Patient confirms NPO status and agrees with scheduled surgery. History, Chart, Medications and Allergies reviewed before start of procedure.Pre-Op teaching done. Pt verbalizes understanding.
--- NOTE | 2023-09-25 09:36 | NUR ---
09/25/23 0936 Mer An SPINAL NERVE BLOCK COMPLETED BY DR. VALDES UPON ENTRY TO OR. PT TOLERATED WELL.
--- NOTE | 2023-09-25 13:18 | NUR ---
ARRIVAL TO UNIT PT ARRIVED TO UNIT FROM PACU ON BED. POLAR JAMI AND LITA HOSE IN PLACE. PT REPORTS SOME NAUSEA, MEDICATION PER EMAR. PT REPORTS PAIN BUT IS ACTIVELY FALLING ASLEEP, ENCOURAGED PATIENT TO TRY AND SLEEP. PAIN MUCH IMPROVED PER PATIENT ONCE SHE NAPPED. REPORTS SOME NUMBNESS TO FEET. NO URGE TO VOID AT THIS TIME. CALL LIGHT PROVIDED, EDUCATED ON USE.
--- NOTE | 2023-09-25 17:07 | NUR ---
SHIFT SUMMARY S/P RTKA PT HAS BEEN UP AND WORKED WITH THERAPY, PLAN IS FOR ONE MORE SESSION TOMORROW. PAIN CONTROLLED PER EMAR, SENSATION INTACT. PT DENIES URGE TO VOID YET BUT HAS BEEN TOLERATING PO WELL. WILL BLADDER SCAN NEEDED. DRESSING REMAINS CDI. POLAR JAMI IN PLACE.
[2023-09-26 00:42] VITALS: BP 119/69
[2023-09-26 04:03] VITALS: BP 121/70
--- NOTE | 2023-09-26 04:19 | NUR ---
SHIFT SUMMARY POD1 R TKA. DRESSING IS C/D/I. SENSATION AND CIRCULATION REMAINS INTACT IN RLE. VSS. PT SLEPT ON AND OFF T/O THE NIGHT. PT ABLE TO AMBULATE TO THE BATHROOM MULTIPLE TIMES T/O THE NIGHT. VOIDING W/O DIFFICULTY. TOLLERATING PO INTAKE W/O N/V. MEDICATED FOR PAIN WITH ULTRAM WITH GOOD RESULTS. NO ACUTE EVENTS T/O THE NIGHT. PLAN TO D/C TODAY.
[2023-09-26 06:09] LABS: BASOPHILS ABSOLUTE AUTO 0.02 K/mm3 (0.00-0.23); BASOPHILS PERCENT AUTO 0 % (0-2); EOSINOPHILS ABSOLUTE AUTO 0.09 K/mm3 (0.00-0.68); EOSINOPHILS PERCENT AUTO 1 % (0-6); Hematocrit 34.1 % (33.0-51.0); Hemoglobin 11.2 g/dL (11.5-16.0); IMMATURE GRAN ABSOLUTE AUTO 0.03 K/mm3 (0.00-0.10); IMMATURE GRAN PERCENT AUTO 0 % (0-1); LYMPHOCYTES PERCENT AUTO 13 % (21-46); MONOCYTES ABSOLUTE AUTO 0.74 K/mm3 (0.16-1.47); MONOCYTES PERCENT AUTO 11 % (4-13); Mean Corpuscular HGB 30.2 pg (26.0-34.0); Mean Corpuscular HGB Conc 32.8 g/dL (31.5-36.5); Mean Corpuscular Volume 92 fL (80-100); Mean Platelet Volume 9.6 fL (9.1-12.4); NEUTROPHILS ABSOLUTE AUTO 5.27 K/mm3 (1.96-9.15); NEUTROPHILS PERCENT AUTO 75 % (41-73); Platelet Count 201 K/mm3 (150-400); RDW Coefficient Variation 13.9 % (11.7-14.2); RDW Standard Deviation 47.3 fL (35.1-46.3); Red Blood Cell Count 3.71 M/mm3 (3.80-5.20); White Blood Cell Count 7.05 K/mm3 (4.00-11.30)
[2023-09-26 06:33] LABS: Bun/Creatinine Ratio 18.5 (12.0-20.0); Calcium, Blood 8.3 mg/dL (8.5-10.1); Creatinine, Blood 0.86 mg/dL (0.40-1.00); Potassium, Blood 4.2 mmol/L (3.5-5.5)
[2023-09-26 07:35] VITALS: BP 111/78
[2023-09-26] MEDS ORDERED: ASPI81CH PO (09:32)
[2023-09-26] MEDS ORDERED: HYDMOR2 PO (09:32)
--- NOTE | 2023-09-26 11:14 | NUR ---
DISCHARGE: PACKET PRINTED AND PT EDUCATED. NO IV TO DC. PT GIVEN SCRIPTS TO FILL AND EXTRA AQUACEL DRESSINGS. PT LEFT UNIT VIA WHEELCHAIR WITH [facility]EN SPENCE AND PT DAUGHTER AT 1115
== END 2023-09-26 13:00 | disposition home or self-care (01) ==
LOC: ORSCMMR 06:30 → ORD 08:15 → ORSCMMR 08:15 → SURS 09:54 → ORSCMMR 09-26 13:00
PROVIDERS: Orthopaedic Surgery
PROC: 0SRC0JA Replacement of Right Knee Joint with Synthetic Substitute, Uncemented, Open Approach (ICD-10-PCS; principal; 2023-09-25 08:15)
DX: M17.11 Unilateral primary osteoarthritis, right knee (principal); Z96.652 Presence of left artificial knee joint; E03.9 Hypothyroidism, unspecified; G47.33 Obstructive sleep apnea (adult) (pediatric); Z79.899 Other long term (current) drug therapy; E66.01 Morbid (severe) obesity due to excess calories; Z68.41 Body mass index [BMI] 40.0-44.9, adult
CPT/HCPCS: 36415; 73560-RT; 80048; 85025; 97110; 97116; 97162; A9270; C1776; J0171; J0690; J0735; J1170; J1885; J2250; J2405; J2704; J2765; J2795; J3010; J7120

== ENCOUNTER → 2025-07-14 | Outpatient (CLI) | payer BC ==
[~2025-07-14] MED LIST changes: +HYDMOR2 PO
== END ==
LOC: LAB SHORT 13:55 → LAB 13:55
DX: R30.0 Dysuria (principal)
CPT/HCPCS: 87086

== ENCOUNTER → 2025-08-13 | Outpatient (CLI) | payer BC ==
[2025-08-13 15:53] LABS: BASOPHILS ABSOLUTE AUTO 0.03 K/mm3 (0.00-0.23); BASOPHILS PERCENT AUTO 1 % (0-2); EOSINOPHILS ABSOLUTE AUTO 0.07 K/mm3 (0.00-0.68); EOSINOPHILS PERCENT AUTO 1 % (0-6); Hematocrit 38.0 % (33.0-51.0); Hemoglobin 12.7 g/dL (11.5-16.0); IMMATURE GRAN ABSOLUTE AUTO 0.00 K/mm3 (0.00-0.10); IMMATURE GRAN PERCENT AUTO 0 % (0-1); LYMPHOCYTES ABSOLUTE AUTO 1.70 K/mm3 (0.84-5.20); LYMPHOCYTES PERCENT AUTO 34 % (21-46); MONOCYTES ABSOLUTE AUTO 0.50 K/mm3 (0.16-1.47); MONOCYTES PERCENT AUTO 10 % (4-13); Mean Corpuscular HGB Conc 33.4 g/dL (31.5-36.5); Mean Corpuscular Volume 94 fL (80-100); NEUTROPHILS ABSOLUTE AUTO 2.77 K/mm3 (1.96-9.15); NEUTROPHILS PERCENT AUTO 55 % (41-73); NRBC ABSOLUTE 0.00 K/mm3 (0.00-0.02); NRBC Auto 0.0 /100 WBC (0.0-0.2); Platelet Count 240 K/mm3 (150-400); RDW Coefficient Variation 13.3 % (11.7-14.2); RDW Standard Deviation 45.8 fL (35.1-46.3)
[2025-08-13 16:05] LABS: Alanine Aminotransfer (ALT/SGP 28.0 U/L (12-78); Albumin, Blood 3.9 g/dL (3.4-5.0); Albumin/Globulin Ratio 1.2 (0.8-1.8); Anion Gap 11.0 mmol/L (3-11); Aspartate Aminotrans (AST/SGOT 16.0 U/L (12-37); Bilirubin, Total 0.3 mg/dL (0.1-1.0); Blood Urea Nitrogen 20.0 mg/dL (8-24); CO2, Blood 27.0 mmol/L (21-32); Calcium, Blood 9.3 mg/dL (8.5-10.1); Chloride, Blood 106.0 mmol/L (98-108); Creatinine, Blood 0.83 mg/dL (0.40-1.00); Globulin, Blood 3.2 g/dL (2.2-4.0); Glucose, Blood 80.0 mg/dL (70-99); Potassium, Blood 4.2 mmol/L (3.5-5.5); Sodium, Blood 140.0 mmol/L (136-145); Total Protein, Blood 7.1 g/dL (6.4-8.2)
== END | disposition home or self-care (01) ==
LOC: LAB SHORT 15:49 → LAB 15:49
PROVIDERS: Physician Assistant
DX: R10.31 Right lower quadrant pain (principal)
CPT/HCPCS: 80053; 85025